=== PATIENT | female | born 1955 | race Caucasian/White ===

== ENCOUNTER 2017-05-24 19:16 | Inpatient (IN) | payer OTHER ==
[~2017-05-24] VITALS: Ht 160 cm; Wt 74.4 kg
[~2017-05-24 19:16] MED LIST: AMOCLA875 PO; Augmentin 875-1 EACH PO; BP MED; Bactrim 400-801 EACH PO; Flagyl500 MG PO; LEVSOD50 PO; LOSHYD100 PO; SIMV40 PO; THYROID MED; Ultram50 MG PO; VERA120 PO
[2017-05-24 20:20] LABS: Calcium, Ionized (POC) 0.98 mmol/L (1.10-1.46); Chloride (POC) 83 mmol/L (98-108); Creatinine (POC) 0.8 mg/dL (0.6-1.0); Glucose (ISTAT POC) 160 mg/dL (70-99); Potassium (POC) 2.7 mmol/L (3.5-5.5); Sodium (POC) 122 mmol/L (135-148); Total CO2 (POC) 22 mmol/L (21-32)
[2017-05-24 20:24] LABS: BASOPHILS ABSOLUTE AUTO 0.08 K/mm3 (0.00-0.23); BASOPHILS PERCENT AUTO 1 % (0-2); EOSINOPHILS ABSOLUTE AUTO 0.22 K/mm3 (0.00-0.68); EOSINOPHILS PERCENT AUTO 3 % (0-6); Hematocrit 40.5 % (33.0-51.0); Hemoglobin 14.5 g/dL (11.5-16.0); IMMATURE GRAN ABSOLUTE AUTO 0.02 K/mm3 (0.00-0.10); IMMATURE GRAN PERCENT AUTO 0 % (0-1); LYMPHOCYTES ABSOLUTE AUTO 1.91 K/mm3 (0.84-5.20); LYMPHOCYTES PERCENT AUTO 26 % (21-46); MONOCYTES ABSOLUTE AUTO 0.84 K/mm3 (0.16-1.47); MONOCYTES PERCENT AUTO 11 % (4-13); Mean Corpuscular HGB 30.9 pg (26.0-34.0); Mean Corpuscular HGB Conc 35.8 g/dL (31.5-36.5); Mean Corpuscular Volume 86 fL (80-100); Mean Platelet Volume 10.6 fL (9.1-12.4); NEUTROPHILS PERCENT AUTO 59 % (41-73); Platelet Count 178 K/mm3 (150-400); RDW Coefficient Variation 11.7 % (11.7-14.2); RDW Standard Deviation 36.8 fL (35.1-46.3); White Blood Cell Count 7.47 K/mm3 (4.00-11.30)
[2017-05-24 20:36] LABS: Alanine Aminotransfer (ALT/SGP 25 U/L (12-78); Albumin, Blood 4.2 g/dL (3.4-5.0); Alk Phos 53 U/L (50-136); Anion Gap 16 mmol/L (6-16); Aspartate Aminotrans (AST/SGOT 25 U/L (12-37); Bilirubin, Total 0.7 mg/dL (0.1-1.0); Blood Urea Nitrogen 17 mg/dL (8-24); CO2, Blood 23 mmol/L (21-32); Calcium, Blood 9.2 mg/dL (8.5-10.1); Chloride, Blood 83 mmol/L (98-108); Creatinine, Blood 0.77 mg/dL (0.40-1.00); Globulin, Blood 4.2 g/dL (2.2-4.0); Glomerular Filtration Rate >60 (60-); Glucose, Blood 147 mg/dL (70-99); Potassium, Blood 2.7 mmol/L (3.5-5.5); Sodium, Blood 122 mmol/L (136-145); Total Protein, Blood 8.4 g/dL (6.4-8.2)
[2017-05-24] MEDS ORDERED: CLON.2 PO (20:51)
[2017-05-24] MEDS ORDERED: Red Yeast Rice600 MG PO (20:51)
[2017-05-24] MEDS ORDERED: AMLO5 PO (20:52)
[2017-05-24] MEDS ORDERED: LOSA50 PO (20:54)
[2017-05-24] MEDS ORDERED: FLUO10 PO (20:54)
[2017-05-24] MEDS ORDERED: CHLO25B PO (20:57)
[2017-05-24] MEDS ORDERED: CARV3.125 PO (21:45)
[2017-05-24] MEDS ORDERED: ASPI81CH PO (21:45)
[2017-05-24] MEDS ORDERED: Micro-K10 MEQ (21:46)
[2017-05-25] MEDS ORDERED: VITAMIN D35000 UNIT PO (04:14)
[2017-05-25 04:21] LABS: Appearance, Urine Clear (Clear); Color, Urine Yellow (P-Yellow); Leukocyte Esterase, Urine Neg (Neg); Source, Urine Clean Catch; U Amphetamine Screen Not Detected; U Barbituate Screen Not Detected; U Benzodiazapine Screen Not Detected; U Buprenorphine Screen Not Detected; U Cannabinoids Screen Not Detected; U Cocaine Screen Not Detected; U Methadone Screen Not Detected; U Methamphetamine Screen Not Detected; U Opiates Screen Not Detected; U Oxycodone Screen Not Detected; U Phencyclidine Screen Not Detected; U Propoxyphene Screen Not Detected
[2017-05-25 04:22] LABS: Bilirubin, Urine Neg (Neg); Blood, Urine 2+ (Neg); Glucose Qualitative, Urine Neg (Neg); Ketones, Urine 3+ (Neg); Nitrite, Urine Neg (Neg); Protein, Urine 2+ (Neg); Red Blood Cells, Urine 0-2 /hpf (0-2); Squamous Epithelial Cells Few /hpf (Few); Urobilinogen, Urine NORM (Normal); White Blood Cells, Urine 0-2 /hpf (0-5)
[2017-05-25 04:23] LABS: Bacteria Few /hpf
[2017-05-25 04:58] LABS: Anion Gap 13 mmol/L (6-16); Blood Urea Nitrogen 14 mg/dL (8-24); Bun/Creatinine Ratio 20.3 (12.0-20.0); CO2, Blood 24 mmol/L (21-32); Calcium, Blood 8.4 mg/dL (8.5-10.1); Chloride, Blood 85 mmol/L (98-108); Creatinine, Blood 0.69 mg/dL (0.40-1.00); Glomerular Filtration Rate >60 (60-); Glucose, Blood 121 mg/dL (70-99); Potassium, Blood 2.9 mmol/L (3.5-5.5); Sodium, Blood 122 mmol/L (136-145)
[2017-05-25 15:08] LABS: Bun/Creatinine Ratio 11.9 (12.0-20.0); Calcium, Blood 8.5 mg/dL (8.5-10.1); Creatinine, Blood 1.34 mg/dL (0.40-1.00); Potassium, Blood 3.9 mmol/L (3.5-5.5)
[2017-05-25 23:01] LABS: Bun/Creatinine Ratio 19.5 (12.0-20.0); Calcium, Blood 8.4 mg/dL (8.5-10.1); Creatinine, Blood 1.13 mg/dL (0.40-1.00); Potassium, Blood 4.1 mmol/L (3.5-5.5)
[2017-05-26 05:25] LABS: BASOPHILS ABSOLUTE AUTO 0.05 K/mm3 (0.00-0.23); BASOPHILS PERCENT AUTO 1 % (0-2); EOSINOPHILS ABSOLUTE AUTO 0.27 K/mm3 (0.00-0.68); EOSINOPHILS PERCENT AUTO 4 % (0-6); Hematocrit 38.5 % (33.0-51.0); Hemoglobin 13.4 g/dL (11.5-16.0); IMMATURE GRAN ABSOLUTE AUTO 0.02 K/mm3 (0.00-0.10); IMMATURE GRAN PERCENT AUTO 0 % (0-1); LYMPHOCYTES ABSOLUTE AUTO 2.14 K/mm3 (0.84-5.20); LYMPHOCYTES PERCENT AUTO 29 % (21-46); MONOCYTES ABSOLUTE AUTO 0.87 K/mm3 (0.16-1.47); MONOCYTES PERCENT AUTO 12 % (4-13); Mean Corpuscular HGB 30.7 pg (26.0-34.0); Mean Corpuscular HGB Conc 34.8 g/dL (31.5-36.5); Mean Corpuscular Volume 88 fL (80-100); Mean Platelet Volume 10.1 fL (9.1-12.4); NEUTROPHILS ABSOLUTE AUTO 4.15 K/mm3 (1.96-9.15); NEUTROPHILS PERCENT AUTO 55 % (41-73); Platelet Count 193 K/mm3 (150-400); RDW Coefficient Variation 12.3 % (11.7-14.2); RDW Standard Deviation 40.4 fL (35.1-46.3); Red Blood Cell Count 4.36 M/mm3 (3.80-5.20)
[2017-05-26 05:47] LABS: Alanine Aminotransfer (ALT/SGP 22 U/L (12-78); Albumin, Blood 3.1 g/dL (3.4-5.0); Albumin/Globulin Ratio 0.8 (0.8-1.8); Alk Phos 41 U/L (50-136); Anion Gap 7 mmol/L (6-16); Aspartate Aminotrans (AST/SGOT 18 U/L (12-37); Bilirubin, Total 0.8 mg/dL (0.1-1.0); Blood Urea Nitrogen 24 mg/dL (8-24); Bun/Creatinine Ratio 26.5 (12.0-20.0); CO2, Blood 24 mmol/L (21-32); Calcium, Blood 8.4 mg/dL (8.5-10.1); Chloride, Blood 97 mmol/L (98-108); Creatinine, Blood 0.91 mg/dL (0.40-1.00); Globulin, Blood 3.8 g/dL (2.2-4.0); Glomerular Filtration Rate >60 (60-); Glucose, Blood 103 mg/dL (70-99); Potassium, Blood 4.1 mmol/L (3.5-5.5); Sodium, Blood 128 mmol/L (136-145); Total Protein, Blood 6.9 g/dL (6.4-8.2)
[2017-05-27 06:32] LABS: BASOPHILS ABSOLUTE AUTO 0.08 K/mm3 (0.00-0.23); BASOPHILS PERCENT AUTO 1 % (0-2); EOSINOPHILS ABSOLUTE AUTO 0.45 K/mm3 (0.00-0.68); EOSINOPHILS PERCENT AUTO 6 % (0-6); Hematocrit 41.2 % (33.0-51.0); Hemoglobin 14.4 g/dL (11.5-16.0); IMMATURE GRAN ABSOLUTE AUTO 0.03 K/mm3 (0.00-0.10); IMMATURE GRAN PERCENT AUTO 0 % (0-1); LYMPHOCYTES ABSOLUTE AUTO 1.99 K/mm3 (0.84-5.20); LYMPHOCYTES PERCENT AUTO 27 % (21-46); MONOCYTES ABSOLUTE AUTO 0.96 K/mm3 (0.16-1.47); MONOCYTES PERCENT AUTO 13 % (4-13); Mean Corpuscular HGB 30.8 pg (26.0-34.0); Mean Corpuscular Volume 88 fL (80-100); Mean Platelet Volume 10.1 fL (9.1-12.4); NEUTROPHILS ABSOLUTE AUTO 3.87 K/mm3 (1.96-9.15); NEUTROPHILS PERCENT AUTO 52 % (41-73); Platelet Count 193 K/mm3 (150-400); RDW Coefficient Variation 12.2 % (11.7-14.2); RDW Standard Deviation 39.1 fL (35.1-46.3); Red Blood Cell Count 4.67 M/mm3 (3.80-5.20); White Blood Cell Count 7.38 K/mm3 (4.00-11.30)
[2017-05-27 06:58] LABS: Alanine Aminotransfer (ALT/SGP 23 U/L (12-78); Albumin, Blood 3.7 g/dL (3.4-5.0); Albumin/Globulin Ratio 0.9 (0.8-1.8); Alk Phos 47 U/L (50-136); Anion Gap 9 mmol/L (6-16); Aspartate Aminotrans (AST/SGOT 25 U/L (12-37); Bilirubin, Total 0.7 mg/dL (0.1-1.0); Blood Urea Nitrogen 24 mg/dL (8-24); Bun/Creatinine Ratio 27.3 (12.0-20.0); CO2, Blood 28 mmol/L (21-32); Calcium, Blood 9.2 mg/dL (8.5-10.1); Chloride, Blood 94 mmol/L (98-108); Creatinine, Blood 0.88 mg/dL (0.40-1.00); Globulin, Blood 4.1 g/dL (2.2-4.0); Glomerular Filtration Rate >60 (60-); Glucose, Blood 94 mg/dL (70-99); Potassium, Blood 3.2 mmol/L (3.5-5.5); Sodium, Blood 131 mmol/L (136-145); Total Protein, Blood 7.8 g/dL (6.4-8.2)
[2017-05-27] MEDS ORDERED: AMLO10 PO (11:25)
[2017-05-27] MEDS ORDERED: CHLO25B PO (11:26)
[2017-05-27] MEDS ORDERED: CLOP75 PO (11:27)
[2017-05-27] MEDS ORDERED: ATOR80 PO (11:27)
[2018-01-12] MEDS ORDERED: FURO20 PO (11:35)
[2018-01-12] MEDS ORDERED: PROBIOTIC1 EAC1 PO (11:36)
[2018-01-12] MEDS ORDERED: BIOMEGA PO (11:37)
== END 2017-05-27 12:46 | disposition home or self-care (01) | DRG 78 ==
LOC: ER 19:16 → ICUE 22:12 → ICUW 22:12 → ICUE 22:52 → MEDS 05-25 15:49 → ENPENDDIS 05-27 09:49 → MEDS 05-27 12:46
PROVIDERS: Internal Medicine
PROC: 4A12X4Z Monitoring of Cardiac Electrical Activity, External Approach (ICD-10-PCS; principal; 2017-05-25)
DX: I67.4 Hypertensive encephalopathy (principal); E87.1 Hypo-osmolality and hyponatremia; E11.59 Type 2 diabetes mellitus with other circulatory complications; E87.8 Other disorders of electrolyte and fluid balance, not elsewhere classified; E03.9 Hypothyroidism, unspecified; I16.0 Hypertensive urgency; E86.0 Dehydration; E87.6 Hypokalemia; R41.0 Disorientation, unspecified; R51 Headache; Z86.73 Personal history of transient ischemic attack (TIA), and cerebral infarction without residual deficits; Z79.84 Long term (current) use of oral hypoglycemic drugs
CPT/HCPCS: 36415; 70450; 70496; 70498; 80047; 80048; 80053; 81001; 83735; 84443; 85014; 85025; 93005; 93010; 93306; 93880; 96374; 96375; 99285; J0360; J1650; J1940; J2405; J3480; J7030; Q9967

== ENCOUNTER 2017-10-09 18:37 | Emergency (ER) | payer OTHER ==
[~2017-10-09] VITALS: Ht 162.6 cm; Wt 73.0 kg
[~2017-10-09 18:37] MED LIST changes: +AMLO10 PO; +AMLO5 PO; +ASPI81CH PO; +ATOR80 PO; +CARV3.125 PO; +CHLO25B PO; +CLON.2 PO; +CLOP75 PO; +FLUO10 PO; +LOSA50 PO; +Micro-K10 MEQ; +Red Yeast Rice600 MG PO; +VITAMIN D35000 UNIT PO
[2017-10-09] MEDS ORDERED: FURO100EL (19:19)
[2017-10-09 19:27] LABS: BASOPHILS ABSOLUTE AUTO 0.05 K/mm3 (0.00-0.23); BASOPHILS PERCENT AUTO 1 % (0-2); EOSINOPHILS ABSOLUTE AUTO 0.27 K/mm3 (0.00-0.68); EOSINOPHILS PERCENT AUTO 5 % (0-6); Hematocrit 40.4 % (33.0-51.0); Hemoglobin 13.5 g/dL (11.5-16.0); IMMATURE GRAN ABSOLUTE AUTO 0.01 K/mm3 (0.00-0.10); IMMATURE GRAN PERCENT AUTO 0 % (0-1); LYMPHOCYTES ABSOLUTE AUTO 1.73 K/mm3 (0.84-5.20); LYMPHOCYTES PERCENT AUTO 30 % (21-46); MONOCYTES ABSOLUTE AUTO 0.55 K/mm3 (0.16-1.47); MONOCYTES PERCENT AUTO 9 % (4-13); Mean Corpuscular HGB 31.2 pg (26.0-34.0); Mean Corpuscular HGB Conc 33.4 g/dL (31.5-36.5); Mean Corpuscular Volume 93 fL (80-100); NEUTROPHILS ABSOLUTE AUTO 3.25 K/mm3 (1.96-9.15); NEUTROPHILS PERCENT AUTO 55 % (41-73); Platelet Count 173 K/mm3 (150-400); RDW Coefficient Variation 12.7 % (11.7-14.2); RDW Standard Deviation 43.8 fL (35.1-46.3); Red Blood Cell Count 4.33 M/mm3 (3.80-5.20); White Blood Cell Count 5.86 K/mm3 (4.00-11.30)
[2017-10-09 19:45] LABS: Alanine Aminotransfer (ALT/SGP 21 U/L (12-78); Albumin, Blood 3.6 g/dL (3.4-5.0); Albumin/Globulin Ratio 0.9 (0.8-1.8); Alk Phos 49 U/L (50-136); Anion Gap 8 mmol/L (6-16); Aspartate Aminotrans (AST/SGOT 19 U/L (12-37); Bilirubin, Total 0.3 mg/dL (0.1-1.0); Blood Urea Nitrogen 32 mg/dL (8-24); Bun/Creatinine Ratio 32.4 (12.0-20.0); CO2, Blood 26 mmol/L (21-32); Calcium, Blood 8.9 mg/dL (8.5-10.1); Chloride, Blood 106 mmol/L (98-108); Creatinine, Blood 0.99 mg/dL (0.40-1.00); Glomerular Filtration Rate >60 (60-); Glucose, Blood 106 mg/dL (70-99); Potassium, Blood 3.9 mmol/L (3.5-5.5); Sodium, Blood 140 mmol/L (136-145); Total Protein, Blood 7.6 g/dL (6.4-8.2)
[2017-10-09 20:14] LABS: Source, Urine Clean Catch
[2017-10-09 20:17] LABS: Bilirubin, Urine Neg (Neg); Blood, Urine Neg (Neg); Glucose Qualitative, Urine Neg (Neg); Ketones, Urine Neg (Neg); Leukocyte Esterase, Urine 1+ (Neg); Nitrite, Urine Neg (Neg); Protein, Urine Neg (Neg); Specific Gravity, Urine 1.015 (1.003-1.022); Urobilinogen, Urine NORM (Normal); pH, Urine 6.5 (5.0-8.0)
[2017-10-09 20:23] LABS: Appearance, Urine Clear (Clear); Color, Urine Yellow (P-Yellow)
[2017-10-09 20:24] LABS: Bacteria Few /hpf; Red Blood Cells, Urine 0-2 /hpf (0-2); Squamous Epithelial Cells Few /hpf (Few)
[2017-10-09] MEDS ORDERED: Cipro500 MG PO (21:51)
== END 2017-10-09 22:17 | disposition home or self-care (01) ==
LOC: ER 18:37
PROVIDERS: Emergency Medicine
DX: N39.0 Urinary tract infection, site not specified (principal); I10 Essential (primary) hypertension; E11.9 Type 2 diabetes mellitus without complications; Z79.899 Other long term (current) drug therapy; Z79.82 Long term (current) use of aspirin; Z79.01 Long term (current) use of anticoagulants
CPT/HCPCS: 36415; 80053; 81001; 85025; 87086; 93005; 93010; 96374; 99285-25; J0696

== ENCOUNTER 2017-12-10 07:35 | Day surgery (SDC) | payer OTHER ==
[~2017-12-10 07:35] MED LIST changes: +Cipro500 MG PO; +FURO100EL
== END 2017-12-10 22:36 | disposition home or self-care (01) ==
LOC: MOI US 07:35
PROC: 0HBU3ZX Excision of Left Breast, Percutaneous Approach, Diagnostic (ICD-10-PCS; principal; 2017-12-10)
DX: C50.912 Malignant neoplasm of unspecified site of left female breast (principal)
CPT/HCPCS: 19083; 77065; A4648; G0279

== ENCOUNTER 2018-01-17 08:37 | Day surgery (SDC) | payer OTHER ==
[~2018-01-17 08:37] MED LIST changes: +BIOMEGA PO; +FURO20 PO; +PROBIOTIC1 EAC1 PO
== END 2018-01-17 23:07 | disposition home or self-care (01) ==
LOC: MOI US 08:37
DX: C50.412 Malignant neoplasm of upper-outer quadrant of left female breast (principal)
CPT/HCPCS: 19285; 77065

== ENCOUNTER 2022-04-16 08:45 | Day surgery (SDC) | payer MEDICARE, OTHER ==
[~2022-04-16] VITALS: Ht 162.6 cm; Wt 72.5 kg
[~2022-04-16 08:45] MED LIST changes: +CARV6.25 PO; +CLON.1 PO; +Catapres0.2 MG PO; +LETR2.5 PO; +LEVSOD112 PO; +LORA.5 PO; +LOSARTAN POTAS100 MG PO; -Micro-K10 MEQ; +Micro-K10 MEQ PO
[2022-04-16] MEDS ORDERED: ATOR10 (09:26)
--- NOTE | 2022-04-16 09:37 | NUR ---
04/16/22 0937 Ree Herrera TETRACAINE TO RIGHT EYE AT 0930 PLEDGET TO RIGHT EYE AT 0932 BY [facility].PORTERG
== END 2022-04-16 11:08 | disposition home or self-care (01) ==
LOC: ORSCSDS 08:45
PROVIDERS: Ophthalmology
PROC: 08DJ3ZZ Extraction of Right Lens, Percutaneous Approach (ICD-10-PCS; principal; 2022-04-16 10:00)
DX: H25.11 Age-related nuclear cataract, right eye (principal); Z96.1 Presence of intraocular lens; I12.9 Hypertensive chronic kidney disease with stage 1 through stage 4 chronic kidney disease, or unspecified chronic kidney disease; N18.2 Chronic kidney disease, stage 2 (mild); E03.9 Hypothyroidism, unspecified; E78.5 Hyperlipidemia, unspecified; Z86.73 Personal history of transient ischemic attack (TIA), and cerebral infarction without residual deficits; Z79.899 Other long term (current) drug therapy
CPT/HCPCS: 82947; J2001; J2250; J3010; J3301; J7040; V2632

== ENCOUNTER → 2023-09-16 | Outpatient (CLI) | payer MEDICARE, OTHER ==
[~2023-09-16] MED LIST changes: +ATOR10
[2023-09-20 09:44] LABS: ALBUMIN 3.84 g/dL (3.75-5.01); ALPHA 1 GLOBULIN 0.34 g/dL (0.19-0.46); ALPHA 2 GLOBULIN 0.86 g/dL (0.48-1.05); GAMMA 1.16 g/dL (0.62-1.51); IMMUNOFIXATION IFE Done; IMMUNOGLOBULIN A 256 mg/dL (68-408); IMMUNOGLOBULIN G 1218 mg/dL (768-1632); IMMUNOGLOBULIN M 138 mg/dL (35-263); KAPPA QNT FREE LIGHT CHAINS 41.98 mg/L (3.30-19.40); KAPPA/LAMBDA FLC RATIO 1.71 (0.26-1.65); LAMBDA QNT FREE LIGHT CHAINS 24.54 mg/L (5.71-26.30); TOTAL PROTEIN, SERUM 7.2 g/dL (6.3-8.2)
== END | disposition home or self-care (01) ==
LOC: LAB SHORT 17:35 → LAB 17:35
PROVIDERS: Internal Medicine Hematology & Oncology
DX: D69.6 Thrombocytopenia, unspecified (principal); D63.8 Anemia in other chronic diseases classified elsewhere
CPT/HCPCS: 82784; 83521; 84155; 84165; 86334

== ENCOUNTER 2024-03-12 17:08 | Inpatient (IN) | payer MEDICARE, OTHER ==
[~2024-03-12] VITALS: Ht 162.6 cm; Wt 74.1 kg
[~2024-03-12 17:08] MED LIST changes: -ATOR10; +ATOR10 PO
[2024-03-12 17:57] LABS: BASOPHILS ABSOLUTE AUTO 0.04 K/mm3 (0.00-0.23); BASOPHILS PERCENT AUTO 1 % (0-2); EOSINOPHILS ABSOLUTE AUTO 0.06 K/mm3 (0.00-0.68); EOSINOPHILS PERCENT AUTO 1 % (0-6); Hemoglobin 12.3 g/dL (11.5-16.0); IMMATURE GRAN ABSOLUTE AUTO 0.03 K/mm3 (0.00-0.10); IMMATURE GRAN PERCENT AUTO 1 % (0-1); LYMPHOCYTES PERCENT AUTO 7 % (21-46); MONOCYTES PERCENT AUTO 18 % (4-13); Mean Corpuscular HGB 31.8 pg (26.0-34.0); Mean Corpuscular HGB Conc 34.2 g/dL (31.5-36.5); Mean Corpuscular Volume 93 fL (80-100); Mean Platelet Volume 12.1 fL (9.1-12.4); NEUTROPHILS ABSOLUTE AUTO 4.43 K/mm3 (1.96-9.15); NEUTROPHILS PERCENT AUTO 73 % (41-73); Platelet Count 65 K/mm3 (150-400); RDW Coefficient Variation 13.8 % (11.7-14.2); RDW Standard Deviation 46.7 fL (35.1-46.3); Red Blood Cell Count 3.87 M/mm3 (3.80-5.20); White Blood Cell Count 6.06 K/mm3 (4.00-11.30)
[2024-03-12 17:59] LABS: CORONAVIRUS COVID-19 AG Negative (NEGATIVE); INFLUENZA A AG Positive (NEGATIVE); INFLUENZA B AG Negative (NEGATIVE)
[2024-03-12 18:03] LABS: Albumin, Blood 3.5 g/dL (3.4-5.0); Albumin/Globulin Ratio 0.8 (0.8-1.8); Bilirubin, Total 0.4 mg/dL (0.1-1.0); Bun/Creatinine Ratio 29.2 (12.0-20.0); Calcium, Blood 9.1 mg/dL (8.5-10.1); Creatinine, Blood 1.13 mg/dL (0.40-1.00); Globulin, Blood 4.5 g/dL (2.2-4.0); Potassium, Blood 3.5 mmol/L (3.5-5.5)
[2024-03-12] MEDS ORDERED: Oseltamivir Phosphate 75 MG Cap PO ONE (18:50)
[2024-03-12] MEDS ORDERED: Acetaminophen 500 MG Tab PO ONE (18:50)
[2024-03-12] MEDS ORDERED: Ipratropium/Albuterol SulF 2.5-0.5MG/3 ML Amp INH ONE (18:55)
[2024-03-12] MEDS ORDERED: FLU VACC TS2024-25(6MOS UP)/PF 45 MCG/0.5 ML SYRINGE IM SCH (20:05)
[2024-03-12] MEDS ORDERED: Ondansetron HCl 2 MG / ML 2ML Vial IV PRN (20:05)
[2024-03-12] MEDS ORDERED: Ipratropium/Albuterol SulF 2.5-0.5MG/3 ML Amp INH SCH (20:05)
[2024-03-12] MEDS ORDERED: Albuterol 2.5 MG/3 ML VIAL INH PRN (20:10)
[2024-03-12] MEDS ORDERED: Acetaminophen 325 MG TABLET PO PRN (20:10)
[2024-03-12] MEDS ORDERED: AmLODIPine Besylate 5 MG Tab PO SCH (21:00)
[2024-03-12] MEDS ORDERED: Oseltamvir Phosphate 6 MG/ML 1MLORALSYR PO SCH (21:00)
[2024-03-12] MEDS ORDERED: FLUoxetine HCl 10 MG Cap PO SCH (21:00)
[2024-03-12] MEDS ORDERED: CATAPRES0.2 M1 PO (21:20)
[2024-03-12] MEDS ORDERED: BUME1 PO (21:24)
[2024-03-12] MEDS ORDERED: LOSA50 PO (21:27)
[2024-03-12] MEDS ORDERED: LEVSOD100 PO (21:29)
[2024-03-12] MEDS ORDERED: LATA.005SO BOTHEYES (21:44)
[2024-03-12 21:46] VITALS: BP 154/79
[2024-03-13 05:00] LABS: BASOPHILS ABSOLUTE AUTO 0.03 K/mm3 (0.00-0.23); BASOPHILS PERCENT AUTO 1 % (0-2); EOSINOPHILS ABSOLUTE AUTO 0.01 K/mm3 (0.00-0.68); EOSINOPHILS PERCENT AUTO 0 % (0-6); Hematocrit 35.4 % (33.0-51.0); Hemoglobin 12.2 g/dL (11.5-16.0); IMMATURE GRAN ABSOLUTE AUTO 0.02 K/mm3 (0.00-0.10); IMMATURE GRAN PERCENT AUTO 0 % (0-1); LYMPHOCYTES ABSOLUTE AUTO 0.43 K/mm3 (0.84-5.20); LYMPHOCYTES PERCENT AUTO 7 % (21-46); MONOCYTES ABSOLUTE AUTO 1.18 K/mm3 (0.16-1.47); MONOCYTES PERCENT AUTO 19 % (4-13); Mean Corpuscular HGB Conc 34.5 g/dL (31.5-36.5); Mean Corpuscular Volume 93 fL (80-100); Mean Platelet Volume 11.9 fL (9.1-12.4); NEUTROPHILS ABSOLUTE AUTO 4.63 K/mm3 (1.96-9.15); NEUTROPHILS PERCENT AUTO 74 % (41-73); Platelet Count 68 K/mm3 (150-400); RDW Coefficient Variation 13.8 % (11.7-14.2); RDW Standard Deviation 47.3 fL (35.1-46.3); Red Blood Cell Count 3.81 M/mm3 (3.80-5.20)
[2024-03-13 05:16] LABS: Albumin, Blood 3.2 g/dL (3.4-5.0); Albumin/Globulin Ratio 0.8 (0.8-1.8); Bilirubin, Total 0.6 mg/dL (0.1-1.0); Bun/Creatinine Ratio 26.9 (12.0-20.0); Calcium, Blood 8.9 mg/dL (8.5-10.1); Creatinine, Blood 0.89 mg/dL (0.40-1.00); Globulin, Blood 4.2 g/dL (2.2-4.0); Magnesium, Blood 2.2 mg/dL (1.6-2.4); Potassium, Blood 3.4 mmol/L (3.5-5.5); Total Protein, Blood 7.4 g/dL (6.4-8.2)
[2024-03-13 05:37] VITALS: BP 199/96
[2024-03-13 05:43] VITALS: BP 187/78
[2024-03-13] MEDS ORDERED: HydrALAZINE HCl 20 MG / ML 1ML Vial IV ONE (06:35)
--- NOTE | 2024-03-13 07:24 | NUR ---
SHIFT SUMMARY: Pt is admitted for acute respiratory failure with hypoxia and is a full code. Is alert and able to make most needs known. Is withdrawn but answers best to yes and no questions. ADLs have been SBA. denies pain or discomfort when asked. Telly reports sinus if the 80s. Critical trop of [address] Henderson shortly after coming to the floor. He gave no new orders there have been no change in condition. Temp of 102.9 noted and reported to md towards the end of shift apap was given. Bp of 187/78 reported to md was given order for hydralazine 10mg iv x1.
[2024-03-13 07:56] VITALS: BP 164/75
[2024-03-13] MEDS ORDERED: Carvedilol 6.25 MG Tab PO SCH (08:00)
[2024-03-13] MEDS ORDERED: Potassium Chl 10MEQ/Water100ML 100 ML IV SCH (08:05)
[2024-03-13] MEDS ORDERED: Losartan Potassium 50 MG Tab PO SCH (09:00)
[2024-03-13] MEDS ORDERED: Oseltamvir Phosphate 30 MG Cap PO SCH (09:00)
[2024-03-13] MEDS ORDERED: Enoxaparin 40 MG/0.4 ML SYR SC SCH (09:00)
[2024-03-13] MEDS ORDERED: NS 250 ML IV PRN (09:50)
[2024-03-13 15:58] VITALS: BP 177/87
[2024-03-13] MEDS ORDERED: CloNIDine 0.1 MG Tab PO SCH (18:00)
--- NOTE | 2024-03-13 18:50 | NUR ---
SHIFT SUMMARY: PT IS A/O X 3, SBA TO BSC, PLEASANT WITH CARE. CAN BE IMPULSIVE WITH GETTING UP AND DOES NOT USE CALL LIGHT. PT NEEDS DIRECTION ON HOW TO WIPE WITH TOILET PAPER. SHE WILL USE HER HAND TO WIPE BOTTOM. PT ON 2 LPM VIA NC. GETS SOB WITH AMBULATION. BP'S ELEVATED TODAY WITH NO C/O CHEST PAIN OR PRESSURE. NSR ON TELE. PT DENIES SYMPTOMS OF PAIN. PT EATING WELL. HAS HAD MULTIPLE FORMED STOOLS TODAY. CONTINENT OF BOWEL AND URINE.
[2024-03-13 20:11] VITALS: BP 184/82
[2024-03-14 02:50] VITALS: BP 161/90
[2024-03-14 05:27] LABS: Bun/Creatinine Ratio 20.2 (12.0-20.0); Calcium, Blood 8.7 mg/dL (8.5-10.1); Creatinine, Blood 0.94 mg/dL (0.40-1.00); Potassium, Blood 3.3 mmol/L (3.5-5.5)
[2024-03-14] MEDS ORDERED: Potassium Chloride 10 Meq Tablet SA PO SCH (05:55)
[2024-03-14] MEDS ORDERED: Potassium Chloride 10 Meq Tablet SA PO ONE (06:05)
--- NOTE | 2024-03-14 06:16 | NUR ---
Pt here for Flu/ dyspnea. On RA with sats running mid 90's. B/P runs high even with multiple meds on board, aware. Pt on Tele runs NSR with BBB. Pt impulsive and has bed alarm on, she also rushed into BR in night and locked door, staff to stand at door and monitor. Pt with low K+ PO replacement administered. Platelets low at 68 ? admin of Lovenox. Denies pain.
[2024-03-14 07:37] VITALS: BP 161/90
[2024-03-14] MEDS ORDERED: Oseltamivir Phosphate 75 MG Cap PO SCH (09:00)
[2024-03-14] MEDS ORDERED: FLUO10 PO (13:29)
[2024-03-14] MEDS ORDERED: ACET325 PO (13:29)
[2024-03-14] MEDS ORDERED: OSEL75CA PO (13:30)
[2024-03-14] MEDS ORDERED: ALBU90OI INH (13:30)
--- NOTE | 2024-03-14 14:54 | NUR ---
DISCHARGE NOTE PT DISCHARGED TO HOME, PICKED UP BY HER CAREGIVER. IV REMOVED, TELE RETURNED. DISCHARGE EDUCATION AND INFORMATION PROVIDED AND REVIEWED WITH THE PT. MEDICATIONS FAXED TO THE PHARMACY OF HER CHOICE. PT TAKEN TO VEHICLE BY WHEELCHAIR. PERSONAL BELONGINGS RETURNED.
== END 2024-03-14 14:55 | disposition home or self-care (01) | DRG 193 ==
LOC: ER 17:08 → MEDS 20:58 → ER 20:58 → MEDS 20:58
PROVIDERS: Physician Assistant; ADMIT Student in an Organized Health Care Education/Training Program
DX: J10.1 Influenza due to other identified influenza virus with other respiratory manifestations (principal); I21.A1 Myocardial infarction type 2; J96.01 Acute respiratory failure with hypoxia; F79 Unspecified intellectual disabilities; I12.9 Hypertensive chronic kidney disease with stage 1 through stage 4 chronic kidney disease, or unspecified chronic kidney disease; E11.22 Type 2 diabetes mellitus with diabetic chronic kidney disease; N18.2 Chronic kidney disease, stage 2 (mild); E78.5 Hyperlipidemia, unspecified; E03.9 Hypothyroidism, unspecified; Z86.73 Personal history of transient ischemic attack (TIA), and cerebral infarction without residual deficits; Z85.3 Personal history of malignant neoplasm of breast; Z90.12 Acquired absence of left breast and nipple; Z79.899 Other long term (current) drug therapy; Z79.890 Hormone replacement therapy
CPT/HCPCS: 36415; 71046; 80048; 80053; 83036; 83735; 84484; 85025; 87428-QW; 93005; 93010; 94640; 94664; 94760; 94761; 94762; 96365; 96366; 96372; 96375; 99285-25; A9270; G0378; J0360; J1650; J3480; J7050

== ENCOUNTER → 2024-05-04 | Outpatient (CLI) | payer MEDICARE, OTHER ==
[~2024-05-04] MED LIST changes: +ACET325 PO; +ALBU90OI INH; +BUME1 PO; +CATAPRES0.2 M1 PO; +LATA.005SO BOTHEYES; +LEVSOD100 PO; +OSEL75CA PO
[2024-05-04 14:52] LABS: Source, Urine Clean Catch
[2024-05-04 16:11] LABS: Creatinine, Urine Random 28.7 mg/dL (27.00-270.00); Protein, Urine Random 5.4 mg/dL (0.0-11.9); Protein/Creat Ratio, Ur Random 0.2
[2024-05-04 16:36] LABS: Appearance, Urine Clear (Clear); Bilirubin, Urine Neg (Neg); Blood, Urine Neg (Neg); Glucose Qualitative, Urine Neg (Neg); Ketones, Urine Neg (Neg); Leukocyte Esterase, Urine Neg (Neg); Nitrite, Urine Neg (Neg); Protein, Urine Neg (Neg); Urobilinogen, Urine NORM (Normal)
[2024-05-04 17:27] LABS: Color, Urine Pale Yellow (P-Yellow)
== END ==
LOC: LAB SHORT 14:49
PROVIDERS: Internal Medicine Nephrology
DX: I12.9 Hypertensive chronic kidney disease with stage 1 through stage 4 chronic kidney disease, or unspecified chronic kidney disease (principal); N18.2 Chronic kidney disease, stage 2 (mild); N17.9 Acute kidney failure, unspecified; E11.22 Type 2 diabetes mellitus with diabetic chronic kidney disease; N18.31 Chronic kidney disease, stage 3a
CPT/HCPCS: 81003; 82570; 84156